=== PATIENT | female | born 1985 | race Caucasian/White ===

== ENCOUNTER 2020-05-20 17:02 | Observation (INO) ==
[2020-05-20 19:36] LABS: BASOPHILS # (AUTO) 0.1 X10^3/uL (0.0-0.1); EOSINOPHILS # (AUTO) 0.2 x10^3/uL (0.0-0.2); EOSINOPHILS % (AUTO) 1.8 % (0.9-2.9); HEMATOCRIT 36.3 % (36.0-47.0); HEMOGLOBIN 12.3 g/dL (12.0-16.0); LYMPHOCYTES # (AUTO) 3.4 X10^3/uL (1.3-2.9); LYMPHOCYTES % (AUTO) 29.7 % (21.0-51.0); MEAN CORPUSCULAR HEMOGLOBIN 32.3 pg (27.0-34.0); MEAN CORPUSCULAR HGB CONC 33.7 g/dL (33.0-35.0); MEAN CORPUSCULAR VOLUME 95.8 fL (80.0-100.0); MEAN PLATELET VOLUME 6.9 fL (7.4-11.0); MONOCYTES # (AUTO) 0.8 x10^3/uL (0.3-0.8); MONOCYTES % (AUTO) 7.3 % (0.0-13.0); NEUTROPHILS # (AUTO) 6.8 x10^3/uL (2.2-4.8); NEUTROPHILS % (AUTO) 60.2 % (42.0-75.0); PLATELET COUNT 333 X10^3/uL (150.0-450.0); RED BLOOD COUNT 3.79 X10^6/uL (3.5-5.4); RED CELL DISTRIBUTION WIDTH 13.3 % (11.6-16.5); WHITE BLOOD COUNT 11.4 X10^3/uL (3.6-10.0)
--- NOTE | 2020-05-20 19:40 | RAD ---
CHEST, PA/LAT ADULTHistory: CHEST PAINComparison:NoneFindings: Cardiac silhouette is normal in size. No acute alveolar infiltrate or effusion is identified. No pneumothorax.Impression: No acute cardiopulmonary abnormality.Electronically signed by: FINESSE PHOENIX (May 20, 2020 19:39:00)
[2020-05-20 19:48] LABS: ALANINE AMINOTRANSFERASE 33 Units/L (12-78); ALBUMIN 3.2 g/dL (3.4-5.0); ALKALINE PHOSPHATASE 98 Units/L (46-116); AMYLASE 97 Units/L (25-115); ASPARTATE AMINO TRANSFERASE 19 Units/L (15-37); BLOOD UREA NITROGEN 12 mg/dL (7-18); CALCIUM 8.7 mg/dL (8.5-10.1); CARBON DIOXIDE 27.8 mmol/L (21-32); CHLORIDE 104 mmol/L (98-107); COR CA(FOR HYPOALB) 9.3 mg/dL (8.5-10.1); CREATININE 0.93 mg/dL (0.55-1.02); LIPASE 403 Units/L (73-393); SODIUM 140 mmol/L (136-145); TOTAL PROTEIN 7.1 g/dL (6.4-8.2); eGFR NON BLACK RACES > 60 (>60)
[2020-05-20 20:08] VITALS: BMI 32.8
[2020-05-20] MEDS: PROTONIX INJ 40 MG VIAL IVP SCH (20:30)
[2020-05-20] MEDS: NS 1000 ML 1,000 ML IV SCH (20:30)
[2020-05-20] MEDS: MORPHINE SULFATE INJ 2 MG INJ IVP PRN (20:30)
[2020-05-20 20:43] LABS: BILIRUBIN,URINE NEGATIVE (NEGATIVE); BLOOD/HEMOGLOBIN,URINE NEGATIVE (NEGATIVE); GLUCOSE, URINE NEGATIVE (NEGATIVE); KETONES,URINE NEGATIVE (NEGATIVE); LEUKOCYTE ESTERASE ,URINE NEGATIVE (NEGATIVE); NITRITES,URINE NEGATIVE (NEGATIVE); PROTEIN,URINE NEGATIVE (NEGATIVE); UROBILINOGEN,URINE NORMAL (NORMAL)
[2020-05-20 20:49] LABS: APPEARANCE,URINE CLEAR (CLEAR); COLOR,URINE PALE YELLOW (YELLOW)
[2020-05-20] MEDS: ZOFRAN INJ 4 MG VIAL IVP PRN (23:10)
[2020-05-20] MEDS: NORCO 5/325 MG TAB PO PRN (23:10)
[2020-05-21 06:25] LABS: BASOPHILS # (AUTO) 0.1 X10^3/uL (0.0-0.1); BASOPHILS % (AUTO) 0.7 % (0.2-1.0); EOSINOPHILS # (AUTO) 0.2 x10^3/uL (0.0-0.2); EOSINOPHILS % (AUTO) 2.3 % (0.9-2.9); HEMOGLOBIN 12.1 g/dL (12.0-16.0); LYMPHOCYTES # (AUTO) 4.1 X10^3/uL (1.3-2.9); LYMPHOCYTES % (AUTO) 43.5 % (21.0-51.0); MEAN CORPUSCULAR HEMOGLOBIN 32.6 pg (27.0-34.0); MEAN CORPUSCULAR HGB CONC 33.6 g/dL (33.0-35.0); MEAN CORPUSCULAR VOLUME 96.9 fL (80.0-100.0); MEAN PLATELET VOLUME 7.1 fL (7.4-11.0); MONOCYTES # (AUTO) 0.8 x10^3/uL (0.3-0.8); MONOCYTES % (AUTO) 8.4 % (0.0-13.0); NEUTROPHILS # (AUTO) 4.2 x10^3/uL (2.2-4.8); NEUTROPHILS % (AUTO) 45.1 % (42.0-75.0); PLATELET COUNT 301 X10^3/uL (150.0-450.0); RED BLOOD COUNT 3.71 X10^6/uL (3.5-5.4); RED CELL DISTRIBUTION WIDTH 12.9 % (11.6-16.5); WHITE BLOOD COUNT 9.4 X10^3/uL (3.6-10.0)
[2020-05-21 06:41] LABS: ALANINE AMINOTRANSFERASE 29 Units/L (12-78); ALBUMIN 2.8 g/dL (3.4-5.0); ALKALINE PHOSPHATASE 88 Units/L (46-116); ASPARTATE AMINO TRANSFERASE 17 Units/L (15-37); BLOOD UREA NITROGEN 10 mg/dL (7-18); CALCIUM 8.3 mg/dL (8.5-10.1); CARBON DIOXIDE 28.3 mmol/L (21-32); CHLORIDE 107 mmol/L (98-107); COR CA(FOR HYPOALB) 9.3 mg/dL (8.5-10.1); CREATININE 0.88 mg/dL (0.55-1.02); SODIUM 141 mmol/L (136-145); TOTAL PROTEIN 6.3 g/dL (6.4-8.2); eGFR NON BLACK RACES > 60 (>60)
[2020-05-21] MEDS: PROTONIX INJ 40 MG VIAL IVP SCH (08:27)
[2020-05-21] MEDS: NS 1000 ML 1,000 ML IV SCH (08:28)
[2020-05-21] MEDS: MORPHINE SULFATE INJ 2 MG INJ IVP PRN (12:32)
--- NOTE | 2020-05-21 12:57 | CT ---
HISTORYRLQ/FLANK PAINSTUDYABDOMEN/PELVIS WITH CONCOMPARISONNoneTECHNIQUEMultiple axial images of the abdomen and pelvis were obtained from the lung bases to the pubic symphysis after the administration of IV contrast. Dose reduction techniques including Automated Exposure Control (AEC) and adjustment of mA and kV were utilized.FINDINGSAtelectasis and/or scarring are seen within the visualized lungs. Diffuse decreased attenuation throughout the liver suggests fatty infiltration. Correlate clinically as other causes of hepatic disease may produce a similar appearance. The spleen, pancreas, adrenals, and right kidney are unremarkable in appearance. An approximate 1.0 cm low-attenuation lesion is noted within the superior pole of the left kidney and may reflect a cyst but remains indeterminate. If no comparison studies are available correlation with nonemergent renal ultrasound may be helpful. No CT evidence of hydronephrosis is identified. The appendix is partially air-filled and otherwise grossly unremarkable. By history the uterus is been surgically removed. The urinary bladder is grossly unremarkable.IMPRESSIONNo CT evidence of obstructive uropathy is appreciated.Hepatic steatosis.Left renal lesion as noted above.Electronically signed by: TIMOTEO SAPP (May 21, 2020 12:56:28)
--- NOTE | 2020-05-21 13:44 | DR.H&P ---
H&P - History & Physical for Day of: H&P Date: 05/20/20 - Chief Complaint Chief Complaint: RIGHT ABDOMINAL PAIN - History of Present Illness History of Present Illness: PT IS 34 WF DIRECT ADMIT PER DR ROMAN FOR TREATMENT OF NEW ONSET RIGHT SIDE ABDOMINAL PAIN. PT REPORTS SUDDEN ONSET WITH TENDERNESS TO RIGHT MID TO LOWER ABD. PT REPORT NAUSEA, DENIES ANY FEVER, CCC. PT REPORTS SHE HAS HAD INCREASED URINARY FREQUENCY. PT DENIES ANY CAD, HTN, GERD - Past Medical History Past Medical History: Anxiety - Past Surgical History Surgical History: , Hysterectomy - Family History Family Medical History: Coronary Artery Disease, Hypertension - Social History Does patient currently use any type of tobacco product: Yes Have you used tobacco products in the last 12 months: Yes Type of Tobacco Use: ELECTRIC C Alcohol Use: None Drug Use: Marijuana - Medications Home Medications: No Known Drug Allergies Allergy (Verified 05/20/20 19:22) CONTINUE taking the following medications escitalopram oxalate 20 mg PO DAILY 05/20/20 [History] - Review of Systems Constitutional: Weakness Eyes: No Symptoms Reported ENT: No Symptoms Reported Respiratory: No Symptoms Reported Cardiovascular: No Symptoms Reported Gastrointestinal: Nausea, Abdominal Pain Genitourinary: Frequency Musculoskeletal: Back Pain Skin: No Symptoms Reported Neurological: No Symptoms Reported - Physical Exam Vital Signs: Temperature 97.5 F Pulse Rate [Right Brachial] 70 Respiratory Rate 18 Blood Pressure [Right Arm] 97/57 O2 Sat by Pulse Oximetry 97 Oriented: Normal Eyes: Normal Ear: Normal Nose: Normal Throat: Normal Respiratory: Clear Throughout Cardiovascular: Normal : Frequency. negative: Dysuria Auscultation: Bowel Sounds: Normal Tenderness: RUQ, RLQ Musculoskeletal: Back:Thoracic, Tender (LOCALIZED TO RIGHT ) Psychiatric: Anxiety Affect: Anxious Speech Pattern: Clear - Assessment/Plan (1) Right sided abdominal pain Status: Acute Plan: ADMIT, NPO, CT ABD PELVIS WITH CONTRAST R/O PE. IV HYDRATION, PAIN AND NAUSEA CONTROL. ADMITTING LABS CBC CMP AMYLASE, LIPASE (2) Urinary frequency Status: Acute (3) Nausea & vomiting Status: Acute - Allergies Allergies/Adverse Reactions: Allergies Allergy/AdvReac Type Severity Reaction Status Date / Time No Known Drug Allergies Allergy Verified 05/20/20 19:22
--- NOTE | 2020-05-21 17:39 | PCM.PROG ---
Progress Note - Progress Note for Day of Date of Exam: 05/21/20 - Subjective Subjective: PT IS 34 WF ADMITTED ON 05/20 WITH CO RIGHT SIDE ABDOMINAL PAIN. PT WAS NPO FOR CT ABD/PELVIS THIS AM. PT CONTINUES WITH RIGHT MID AND LOWER ABDOMINAL TENDERNESS AND RIGHT SIDE MID BACK TENDERNESS. PT IS CURRENTLY ON IV HYDRATION, PAIN CONTROL. PT CO NAUSEA AND FOOD INTOLERANCE, DENIES ANY DIARRHEA - Past Medical Family Social History Past Med/Fam/Surg Hx: No changes since H&P Allergies: Allergies No Known Drug Allergies Allergy (Verified 05/20/20 19:22) - Review of Systems ROS: No change since H&P - Vital Signs and I&O's Vital Signs: Temperature 97.9 F Pulse Rate [Right Brachial] 64 Respiratory Rate 20 Blood Pressure [Right Arm] 97/53 O2 Sat by Pulse Oximetry 98 Intake and Output: Intake & Output 05/19/20 05/20/20 05/21/20 05/22/20 11:59 11:59 11:59 11:59 Intake Total 974 / 974 0 / 0 Balance 974 / 974 0 / 0 - Physical Exam Oriented: Normal Eyes: Normal Ear: Normal Nose: Normal Throat: Normal Respiratory: Normal Cardiovascular: Normal : Frequency. negative: Dysuria Auscultation: Bowel Sounds: Normal Tenderness: RUQ, RLQ Skin: Normal Musculoskeletal: Back:Thoracic, Tender (LOCALIZED TO RIGHT ) Psychiatric: Anxiety Affect: Anxious Speech Pattern: Clear - Laboratory and Diagnostics Result Diagrams: 05/21/20 05:48 05/21/20 05:48 Labs: Laboratory WBC 9.4 X10^3/uL (3.6-10.0) 05/21/20 05:48 RBC 3.71 X10^6/uL (3.5-5.4) 05/21/20 05:48 Hgb 12.1 g/dL (12.0-16.0) 05/21/20 05:48 Hct 36.0 % (36.0-47.0) 05/21/20 05:48 MCV 96.9 fL (80.0-100.0) 05/21/20 05:48 MCH 32.6 pg (27.0-34.0) 05/21/20 05:48 MCHC 33.6 g/dL (33.0-35.0) 05/21/20 05:48 RDW 12.9 % (11.6-16.5) 05/21/20 05:48 Plt Count 301 X10^3/uL (150.0-450.0) 05/21/20 05:48 MPV 7.1 fL (7.4-11.0) L 05/21/20 05:48 Neut % (Auto) 45.1 % (42.0-75.0) 05/21/20 05:48 Lymph % (Auto) 43.5 % (21.0-51.0) 05/21/20 05:48 [place] % (Auto) 8.4 % (0.0-13.0) 05/21/20 05:48 Eos % (Auto) 2.3 % (0.9-2.9) 05/21/20 05:48 Baso % (Auto) 0.7 % (0.2-1.0) 05/21/20 05:48 Neut # (Auto) 4.2 x10^3/uL (2.2-4.8) 05/21/20 05:48 Lymph # (Auto) 4.1 X10^3/uL (1.3-2.9) H 05/21/20 05:48 [place] # (Auto) 0.8 x10^3/uL (0.3-0.8) 05/21/20 05:48 Eos # (Auto) 0.2 x10^3/uL (0.0-0.2) 05/21/20 05:48 Baso # (Auto) 0.1 X10^3/uL (0.0-0.1) 05/21/20 05:48 Absolute Nucleated RBC 0.1 /100WBC 05/21/20 05:48 Sodium 141 mmol/L (136-145) 05/21/20 05:48 Corrected Sodium TNP 05/21/20 05:48 Potassium 4.5 mmol/L (3.5-5.1) 05/21/20 05:48 Chloride 107 mmol/L (98-107) 05/21/20 05:48 Carbon Dioxide 28.3 mmol/L (21-32) 05/21/20 05:48 BUN 10 mg/dL (7-18) 05/21/20 05:48 Creatinine 0.88 mg/dL (0.55-1.02) 05/21/20 05:48 Est GFR (MDRD) Af Amer > 60 (>60) 05/21/20 05:48 Est GFR (MDRD) Non-Af > 60 (>60) 05/21/20 05:48 Glucose 95 mg/dL (65-99) 05/21/20 05:48 Calcium 8.3 mg/dL (8.5-10.1) L 05/21/20 05:48 Corrected Calcium 9.3 mg/dL (8.5-10.1) 05/21/20 05:48 Total Bilirubin 0.20 mg/dL (0.2-1.0) 05/21/20 05:48 AST 17 Units/L (15-37) 05/21/20 05:48 ALT 29 Units/L (12-78) 05/21/20 05:48 Alkaline Phosphatase 88 Units/L (46-116) 05/21/20 05:48 Total Protein 6.3 g/dL (6.4-8.2) L 05/21/20 05:48 Albumin 2.8 g/dL (3.4-5.0) L 05/21/20 05:48 Globulin 3.5 g/dL (2.5-4.5) 05/21/20 05:48 Albumin/Globulin Ratio 0.8 Ratio (1.1-2.1) L 05/21/20 05:48 Amylase 97 Units/L (25-115) 05/20/20 19:25 Lipase 403 Units/L (73-393) H 05/20/20 19:25 Specimen Type Clean catch urine 05/20/20 20:20 Urine Color Pale yellow (YELLOW) 05/20/20 20:20 Urine Appearance Clear (CLEAR) 05/20/20 20:20 Urine pH 7.0 (5.0 - 8.0) 05/20/20 20:20 Ur Specific [place] 1.015 (1.000-1.030) 05/20/20 20:20 Urine Protein Negative (NEGATIVE) 05/20/20 20:20 Urine Glucose (UA) Negative (NEGATIVE) 05/20/20 20:20 Urine Ketones Negative (NEGATIVE) 05/20/20 20:20 Urine Occult Blood Negative (NEGATIVE) 05/20/20 20:20 Urine Nitrite Negative (NEGATIVE) 05/20/20 20:20 Urine Bilirubin Negative (NEGATIVE) 05/20/20 20:20 Urine Urobilinogen Normal (NORMAL) 05/20/20 20:20 Ur Leukocyte Esterase Negative (NEGATIVE) 05/20/20 20:20 - Plan (1) Right sided abdominal pain Status: Acute Plan: NPO, CT ABD PELVIS WITH CONTRAST R/O ACUTE SURGICAL ABDOMEN. IV HYDRATION, PAIN AND NAUSEA CONTROL. AM LABS CBC CMP AMYLASE, LIPASE (2) Urinary frequency Status: Acute (3) Nausea & vomiting Status: Acute
[2020-05-21] MEDS: NORCO 5/325 MG TAB PO PRN (20:55)
[2020-05-21] MEDS: ZOFRAN INJ 4 MG VIAL IVP PRN (20:56)
[2020-05-22] MEDS: PROTONIX INJ 40 MG VIAL IVP SCH (09:25)
[2020-05-22] MEDS: NORCO 5/325 MG TAB PO PRN (09:38)
[2020-05-22] MEDS: ZOFRAN INJ 4 MG VIAL IVP PRN ×2 (09:40→21:37)
[2020-05-22 09:47] LABS: AMYLASE 76 Units/L (25-115); LIPASE 248 Units/L (73-393)
--- NOTE | 2020-05-22 10:09 | US ---
HISTORYSEVERE RLQ PAINSTUDYUltrasound of the abdomenCOMPARISONCT of abdomen and pelvis performed yesterdayFINDINGSThe gallbladder is normal in size without wall thickening or stone or sludge. The common hepatic duct measures 1.7 mm diameter.The right kidney measures 10 x 4.4 x 5.1 cm with cortical thickness of 1.56 cm. The left kidney measures 9.2 x 6 x 3.8 cm with cortical thickness of 1.7 cm. There is no hydronephrosis. There is a medullary hump. There is a 1.3 cm cyst in the upper pole of the left kidney. The urinary bladder is unremarkable.The IVC is patent. There is no free fluid. There is no aortic aneurysm.The right lobe of the liver measures 13.7 cm sagittal length without focal mass. There is appropriate flow in the hepatic and portal veins.The spleen measures 7.8 x 4.2 x 3.1 cm without mass.The visualized pancreas is unremarkable.IMPRESSIONSmall cyst in the upper pole of the left kidney. No acute disease.Electronically signed by: NANCY WALTERS (May 22, 2020 10:07:42)
[2020-05-22] MEDS: MORPHINE SULFATE INJ 2 MG INJ IVP PRN (10:52)
[2020-05-22] MEDS: LEXAPRO PO SCH (10:53)
[2020-05-22] MEDS ORDERED: LEXAPRO ONE (10:55)
[2020-05-22] MEDS: NS 1000 ML 1,000 ML IV SCH ×2 (13:09)
[2020-05-23] MEDS: NS 1000 ML 1,000 ML IV SCH (03:30)
[2020-05-23 06:11] LABS: ALANINE AMINOTRANSFERASE 31 Units/L (12-78); ALKALINE PHOSPHATASE 83 Units/L (46-116); ASPARTATE AMINO TRANSFERASE 18 Units/L (15-37); BLOOD UREA NITROGEN 9 mg/dL (7-18); CALCIUM 8.5 mg/dL (8.5-10.1); CHLORIDE 108 mmol/L (98-107); COR CA(FOR HYPOALB) 9.3 mg/dL (8.5-10.1); CREATININE 0.86 mg/dL (0.55-1.02); SODIUM 142 mmol/L (136-145); TOTAL PROTEIN 6.9 g/dL (6.4-8.2); eGFR NON BLACK RACES > 60 (>60)
[2020-05-23 06:17] LABS: BASOPHILS % (AUTO) 0.6 % (0.2-1.0); EOSINOPHILS # (AUTO) 0.2 x10^3/uL (0.0-0.2); EOSINOPHILS % (AUTO) 1.8 % (0.9-2.9); HEMATOCRIT 36.5 % (36.0-47.0); HEMOGLOBIN 12.5 g/dL (12.0-16.0); LYMPHOCYTES # (AUTO) 2.8 X10^3/uL (1.3-2.9); LYMPHOCYTES % (AUTO) 31.9 % (21.0-51.0); MEAN CORPUSCULAR HEMOGLOBIN 32.5 pg (27.0-34.0); MEAN CORPUSCULAR HGB CONC 34.3 g/dL (33.0-35.0); MEAN CORPUSCULAR VOLUME 94.8 fL (80.0-100.0); MEAN PLATELET VOLUME 6.9 fL (7.4-11.0); MONOCYTES # (AUTO) 0.6 x10^3/uL (0.3-0.8); MONOCYTES % (AUTO) 6.6 % (0.0-13.0); NEUTROPHILS # (AUTO) 5.1 x10^3/uL (2.2-4.8); NEUTROPHILS % (AUTO) 59.1 % (42.0-75.0); PLATELET COUNT 368 X10^3/uL (150.0-450.0); RED BLOOD COUNT 3.85 X10^6/uL (3.5-5.4); RED CELL DISTRIBUTION WIDTH 13.1 % (11.6-16.5); WHITE BLOOD COUNT 8.7 X10^3/uL (3.6-10.0)
[2020-05-23] MEDS ORDERED: LEXAPRO ONE (09:00)
[2020-05-23] MEDS: PROTONIX INJ 40 MG VIAL IVP SCH (09:09)
[2020-05-23] MEDS: LEXAPRO PO SCH (09:09)
[2020-05-23 12:21] VITALS: BP 111/76
== END 2020-05-23 12:15 | disposition home or self-care (01) ==
LOC: MED/SURG
PROVIDERS: ADMIT Internal Medicine; ATTEND Internal Medicine
DX: R11.2 Nausea with vomiting, unspecified; R10.31 Right lower quadrant pain; R35.0 Frequency of micturition
CPT/HCPCS: 36415; 71020; 71046; 74177; 76700; 80053; 81003; 82150; 83690; 85025; A4222; C9113; G0378; J2270; J2405; J7030